=== PATIENT | female | born 1975 | race Caucasian/White ===

== ENCOUNTER 2021-07-07 18:39 | Emergency (ER) | payer BC, OTHER ==
[~2021-07-07] VITALS: Ht 170.2 cm; Wt 96.2 kg
[2021-07-07 20:31] LABS: HEMOGLOBIN 12.4 gm/dl (12.3-15.3); RED BLOOD COUNT 3.8 M/UL (4.00-5.10); WHITE BLOOD COUNT 1.6 K/UL (4.5-11.0)
[2021-07-07 20:54] LABS: BUN/CREATININE RATIO 13 (0-10)
== END 2021-07-08 00:07 | disposition home or self-care (01) ==
LOC: ER1 18:39
PROVIDERS: Preventive Medicine Occupational Medicine
DX: U07.1 COVID-19 (principal); Z23 Encounter for immunization; E11.9 Type 2 diabetes mellitus without complications
CPT/HCPCS: 36600; 71045; 80048; 82550; 82553; 82803; 83605; 83874; 84484; 85025; 85379; 85652; 86140; 93005; 99285; J7030; M0245